=== PATIENT | male | born 1950 | race Caucasian/White ===

== ENCOUNTER 2018-09-18 22:31 | Emergency (ER) | payer OTHER, MEDICARE ==
[~2018-09-18] VITALS: Ht 175.3 cm; Wt 93.0 kg
[2018-09-18 22:45] VITALS: BP 144/79
== END 2018-09-19 00:06 | disposition home or self-care (01) ==
LOC: ED 09-19 00:01
DX: S70.02XA Contusion of left hip, initial encounter (principal); W01.0XXA Fall on same level from slipping, tripping and stumbling without subsequent striking against object, initial encounter; Y93.01 Activity, walking, marching and hiking; Y92.410 Unspecified street and highway as the place of occurrence of the external cause; Y99.8 Other external cause status
CPT/HCPCS: 99283